=== PATIENT | female | born 1955 | race Caucasian/White ===

== ENCOUNTER 2016-10-17 06:34 | Inpatient (IN) ==
[2016-10-11 12:54] LABS: Basophils # 0.1 10*3/uL (0.0-0.2); Basophils % 0.6 % (0.0-0.8); Eosinophils # 0.3 10*3/uL (0.0-0.87); Eosinophils % 3.1 % (0.00-10.9); Hematocrit 32.8 VOL% (35.7-47.0); Hemoglobin 10.7 GM/DL (12.0-16.0); Immature Granulocytes % 0.2 %; Immature Granulocytes Absolute 0.02 #; Lymphocytes # 2.5 10*3/uL (1.4-4.0); Lymphocytes % 30.4 % (21.3-54.2); Mean Corpuscular HGB Conc 32.6 GM/DL (32-36); Mean Corpuscular Hemoglobin 28 PG (27-34); Mean Corpuscular Volume 85.6 FL (87-102); Monocytes # 0.7 10*3/uL (0.11-0.8); Monocytes % 8.3 % (1.7-12.7); Neutrophils # 4.8 10*3/uL (1.4-7.4); Neutrophils % 57.4 % (38.7-73.9); Platelet Count 250 T/CUMM (130-400); Red Blood Count 3.83 MC/CUMM (3.8-5.5); Red Cell Distribution Width 12.4 % (9.3-17.3); White Blood Count 8.4 T/CUMM (4-12)
--- NOTE | 2016-10-11 12:57 | EKG Report ---
Stationary ECG Study [facility] Test Date: 10/11/2016 12:56:17 PM Pat Name: CORTEZ WELCH Department: Room: Gender: F Biomedical Manager: HARDEEP FINNEY 10-17 : 1955 Requested by: Jake Finney Order Number: [id number] Reading MD: QASIM SHOOK Intervals [place] Rate: 68 P: 64 MS: 154 QRS: 42 QRSD: 97 T: 46 QT: 401 QTc: 419 Interpretive Statements SINUS RHYTHM Electronically Signed On 10-11-16 15:11:50 CDT by QASIM SHOOK [email or web address]
[2016-10-11 13:32] LABS: Albumin 4.4 G/DL (3.4-5.0); Bilirubin,Total 0.5 MG/DL (0.2-1.0); Calcium 8.8 MG/DL (8.5-10.1); Osmolality,Calculated 283.1 MOS/KG (273-304); Potassium 4.6 MMOL/L (3.5-5.1); Total Protein 7.2 G/DL (6.4-8.3)
[2016-10-17] MEDS ORDERED: PANTOPRAZOLE 40 MG TABLET PO ONE ×2 (07:05→07:21)
[2016-10-17] MEDS ORDERED: SODIUM CHLORIDE 0.9% 100 ML IV ONE (07:21)
[2016-10-17] MEDS ORDERED: ceFAZolin 1,000 MG VIAL ONE (07:21)
[2016-10-17] MEDS ORDERED: LACTATED RINGERS 1,000 ML IV SCH (07:30)
[2016-10-17] MEDS ORDERED: HEPARIN 5,000 UNIT/1 ML VIAL ONE (08:05)
[2016-10-17] MEDS ORDERED: VANCOMYCIN 500 MG VIAL ONE (08:05)
--- NOTE | 2016-10-17 08:14 | History and Physical Update ---
History and Physical Update - History and Physical H&P was reviewed, the patient examined and there: are no changes in the patients condition since last H&P was completed.
[2016-10-17] MEDS ORDERED: KETOROLAC 30 MG/1 ML VIAL ONE (09:10)
[2016-10-17] MEDS ORDERED: GLYCOPYRROLATE 0.4 MG/2 ML VIAL ONE (09:10)
[2016-10-17] MEDS ORDERED: HEPARIN 10,000 UNIT/10 ML VIAL ONE (09:10)
[2016-10-17] MEDS ORDERED: NITROGLYCERIN 50 MG/250 ML BOTTLE IV ONE (09:10)
[2016-10-17] MEDS ORDERED: ETOMIDATE 20 MG/10 ML VIAL IV ONE (09:10)
[2016-10-17] MEDS ORDERED: PHENYLEPHRINE 20 MG/250 ML PREMIX IV ONE (09:10)
[2016-10-17] MEDS ORDERED: ROCURONIUM 100 MG/10 ML VIAL IV ONE (09:10)
[2016-10-17] MEDS ORDERED: PROTAMINE SULFATE 50 MG/5 ML VIAL IV ONE (09:10)
[2016-10-17] MEDS ORDERED: PROMETHAZINE 25 MG/1 ML VIAL IM PRN (10:50)
[2016-10-17] MEDS ORDERED: GLUCAGON 1 MG VIAL IM PRN (10:50)
[2016-10-17] MEDS ORDERED: DEXTROSE 50% 25 GM/50 ML VIAL IV PRN (10:50)
[2016-10-17] MEDS ORDERED: DOPamine 800 MG/250 ML PREMIX IV PRN (10:50)
[2016-10-17] MEDS ORDERED: NALOXONE 0.4 MG/ML VIAL IV PRN (10:50)
[2016-10-17] MEDS ORDERED: ONDANSETRON 4 MG/2 ML VIAL IV PRN ×2 (10:50→11:17)
--- NOTE | 2016-10-17 10:50 | Operative Note ---
Date of procedure: 10/17/16 Procedure: Dr. Finney operative report Martha sifuentes. Surgeon: Cornelio Anesthesia: [place] general endotracheal Preoperative diagnosis: High-grade right internal carotid artery stenosis. Postoperative diagnosis: Same Procedure: Right carotid endarterectomy with bovine pericardial patch. Indications for the procedure Ms. Sifuentes 61-year-old woman is found to have bilateral high-grade carotid stenoses the right side seems a bit worse and is associated with her being right brain dominant. I have offered a right carotid endarterectomy with interval left carotid endarterectomy I explained the alternatives risks and complications which she understands and accepts Description of the procedure: After the induction of general endotracheal anesthesia the patient was placed in supine position her neck modestly extended and turned to the left. Right neck was prepped with ChloraPrep and draped in the usual fashion. Incision was made in a skin crease below the angle of the mandible and carried into the subplatysmal space. I then dissected along the anterior border of the sternocleidomastoid muscle the anterior facial vein was ligated hemoclipped and divided another branch was also ligated and divided. I dissected to the common carotid artery and controlled it with a maxi vessel loop and the patient then received 5000 units of intravenous heparin. I continued dissecting up along the common carotid past the diseased bifurcation to the more normal distal internal and external carotid arteries. These were controlled with small vessel loops. With adequate anticoagulation I brought up Vesseloops and mitral longitudinal arteriotomy from the common carotid through the diseased bifurcation to the more normal distal internal carotid artery. There was fair backbleeding from the internal carotid and in-line Cope- [place] shunt was placed first in the internal backflush and placed in the common carotid to reestablish flow. As indicated on the arteriogram there was more or less a double area of stenosis one directly at the origin of the internal and one more distally. This was a highly calcified plaque. Using further instrument I did a standard endarterectomy removing the diseased intima and media from the bifurcation it feathered out very well on both the internal and external carotid arteries. Loose flaps of medial removed under loupe magnification endarterectomized segment was flushed copiously with heparinized saline. Bovine pericardial patch and 5-0 Prolene was used to close the arteriotomy shunt removed and appropriate time backflushing internal and external carotid arteries and flushing again with heparinized saline prior to completing the closure. Flow was initiated from the common carotid into the external and then restored into the internal carotid artery. Hemostasis was fair heparin was partially reversed with 25 mg of protamine a pledget of Surgicel and pressure was held for a brief time until hemostasis was good the neck was irrigated with saline and vancomycin it was closed over quarter inch [place] drain with a running 3-0 Monocryl in the platysma and skin clips on the skin. Blood loss is estimated at 150 cc sponge needle and instrument counts are correct and the patient was taken to the recovery room in stable condition. Dr. Finney operative report on brayan Velez maria. Surgeon / Physician: Jake Finney Results - Labs CBC & BMP: 10/11/16 12:48 10/11/16 12:48 Discharge Plan - Discharge Medications No Action Cholecalciferol (Vitamin D3) [Vitamin D3] 1,000 unit PO DAILY Calcium (Carbonate) [Caltrate 600] 1,200 mg PO DAILY Umeclidinium [place] [Incruse Ellipta] 1 puff INH DAILY Timolol 0.5% Oph Soln [Timoptic 0.5%] 1 drop BOTH EYES BEDTIME clonazePAM [Klonopin] 1 mg PO DAILY HYDROcodone/ACETAMIN 10-325 [[place] 10-325] 1 tablet PO Q6H Gabapentin Cap/Tab [Neurontin Cap/Tab] 400 mg PO TID Certolizumab Pegol [Cimzia] 400 mg SQ DIRECTED Potassium Chloride 10 meq PO DAILY Lisinopril [Prinivil] 10 mg PO DAILY Atorvastatin [Lipitor] 80 mg PO BEDTIME Levothyroxine Tab [Synthroid Tab] 112 mcg PO DAILY@0700 amLODIPine [Norvasc] 10 mg PO DAILY Omeprazole 40 mg PO DAILY Aspirin 81 mg PO DAILY Turmeric Root Extract [Turmeric] 1,000 mg PO DAILY Clopidogrel [Plavix] 75 mg PO DAILY Azithromycin 250 mg PO DIRECTED Diclofenac Sodium [Diclofenac Sodium ER] 100 mg PO QOTHER DAY Sertraline [Zoloft] 100 mg PO DAILY - Follow Up or Referral - Forms/Instructions
[2016-10-17] MEDS ORDERED: CERTOLIZUMAB PEGOL 400 MG SQ SCH (11:00)
[2016-10-17] MEDS ORDERED: AZITHROMYCIN 250 MG TABLET PO SCH (11:00)
[2016-10-17] MEDS ORDERED: SEVOFLURANE 1 UNIT/15 MINUTE INH ONE (11:12)
[2016-10-17] MEDS ORDERED: MIDAZOLAM 2 MG/2 ML VIAL ONE (11:13)
[2016-10-17] MEDS ORDERED: fentaNYL 100 MCG/2 ML VIAL ONE (11:13)
[2016-10-17] MEDS ORDERED: ONDANSETRON 4 MG/2 ML VIAL ONE (11:16)
[2016-10-17] MEDS ORDERED: HYDROmorphone 2 MG/1 ML VIAL ONE (11:16)
[2016-10-17] MEDS ORDERED: HYDROmorphone 2 MG/1 ML VIAL IV PRN (11:17)
--- NOTE | 2016-10-17 12:16 | Anesthesia ---
Anesthesia Post OP - Post Ansesthetic Evaluation Patient seen in post op: Yes Resp: within normal limits CV: other (being watched overnight in ICU) Mental: within normal limits Temp: within normal limits Sara-[id number]: within normal limits Nausea and Vomiting: within normal limits Pain: within normal limits
[2016-10-17] MEDS: LACTATED RINGERS 1,000 ML IV SCH ×2 (13:54→17:00)
[2016-10-17] MEDS: ASPIRIN EC 81 MG TABLET PO SCH (13:54)
[2016-10-17] MEDS: KETOROLAC 10 MG TABLET PO SCH ×2 (13:56→17:56)
--- NOTE | 2016-10-17 16:34 | Event Note ---
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 Be up out of bed this evening anticipate moving to the room in the morning
[2016-10-17] MEDS ORDERED: ATORVASTATIN 80 MG TABLET PO SCH (21:00)
[2016-10-18] MEDS: KETOROLAC 10 MG TABLET PO SCH ×3 (01:00→13:51)
[2016-10-18] MEDS: LACTATED RINGERS 1,000 ML IV SCH ×2 (02:22→10:54)
[2016-10-18] MEDS ORDERED: NITROPRUSSIDE 50 MG/2 ML VIAL IV PRN (02:29)
[2016-10-18] MEDS ORDERED: HYDROmorphone 2 MG/1 ML VIAL IV PRN (02:33)
[2016-10-18] MEDS ORDERED: NITROPRUSSIDE 100 MG in DEXTROSE 5% 246 ML IV SCH (03:00)
--- NOTE | 2016-10-18 08:15 | Event Note ---
Walker is awake alert oriented her neck looks good drain is removed vital signs are markedly improved he is ready for transfer upstairs possibly home this evening
[2016-10-18] MEDS ORDERED: CALCIUM (CARBONATE) 600 MG TABLET PO SCH (09:00)
[2016-10-18] MEDS ORDERED: CHOLECALCIFEROL 1,000 UNIT TABLET PO SCH (09:00)
[2016-10-18] MEDS ORDERED: NON-FORMULARY MEDICATION (Umeclidinium Bromide [Incruse Ellipta] 1 PUFF) INH SCH (09:01)
[2016-10-18] MEDS ORDERED: TURMERIC ROOT EXTRACT 1000 MG PO SCH (09:01)
[2016-10-18] MEDS ORDERED: CLOPIDOGREL 75 MG TABLET PO SCH (09:30)
[2016-10-18] MEDS ORDERED: SERTRALINE 100 MG TABLET PO SCH (09:30)
[2016-10-18] MEDS ORDERED: ASPIRIN CHEW 81 MG TABLET PO SCH (09:30)
[2016-10-18] MEDS ORDERED: GABAPENTIN 400 MG CAPSULE PO SCH (09:30)
[2016-10-18] MEDS ORDERED: LISINOPRIL 10 MG TABLET PO SCH (09:30)
[2016-10-18] MEDS ORDERED: POTASSIUM CHLORIDE 10 MEQ TABLET PO SCH (09:30)
[2016-10-18] MEDS ORDERED: amLODIPine 10 MG TABLET PO SCH (09:30)
[2016-10-18] MEDS ORDERED: clonazePAM 0.5 MG TABLET PO SCH (09:30)
[2016-10-18] MEDS ORDERED: PANTOPRAZOLE 40 MG TABLET PO SCH (09:30)
[2016-10-18] MEDS: ASPIRIN EC 81 MG TABLET PO SCH ×2 (10:12→10:47)
[2016-10-18] MEDS: CLOPIDOGREL 75 MG TABLET PO SCH ×2 (10:13→10:47)
[2016-10-18] MEDS ORDERED: LEVOTHYROXINE 112 MCG TABLET PO SCH (10:19)
--- NOTE | 2016-10-18 10:52 | Pathology Report from [facility] ---
ACCESSION # : [id number] PATIENT NAME : Cortez Welch ORDERING DR : SILVA MAGUIRE MD CLINICAL HX: Asymptomatic high grade [place]. carotid stenosis POST-OP DX: Same SPECIMEN INFO: Plaque GROSS DESCRIPTION: The specimen is received in formalin labeled with the patient 's name Cortez Welch is a yellow red endarectomy measuring 5.2 x 1.3 cm. Purse Framer sections are submitted in one cassette following decalcification. DIAGNOSIS FOR CORTEZ WELCH: PLAQUE, RIGHT CAROTID ENDARTERECTOMY: Calcified atheromatous plaque. SERVICE DATE: 10/17/2016 REPORT DATE: 10/18/2016 PATHOLOGIST: Nano Ceballos M.D. [facility]
[2016-10-18 15:39] VITALS: BP 152/73
--- NOTE | 2016-10-18 15:59 | Discharge Summary ---
Hospital Course - Hospital Course Hospital Course: Mr. Luciano was admitted for right carotid endarterectomy for high-grade stenosis involving the right internal carotid artery that likely was symptomatic. She is done well with that surgery she is up and about neurologically intact her neck looks good with no hematoma voice is normal tolerating a diet. She is ready for discharge and I am instructed her with her in wound care exercise expected recovery medications we of course keeping her on aspirin and Plavix. She has Lortab for her chronic arthritis. I will see her in office next week for staple removal we will plan on an interval left carotid endarterectomy in 4 weeks Specialty Discharge - Follow Up or Referrals Follow up with: Jake Finney MD [Physician] - Discharge Plan - Discharge Medications No Action Cholecalciferol (Vitamin D3) [Vitamin D3] 1,000 unit PO DAILY Calcium (Carbonate) [Caltrate 600] 1,200 mg PO DAILY Umeclidinium [place] [Incruse Ellipta] 1 puff INH DAILY Timolol 0.5% Oph Soln [Timoptic 0.5%] 1 drop BOTH EYES BEDTIME clonazePAM [Klonopin] 1 mg PO DAILY HYDROcodone/ACETAMIN 10-325 [[place] 10-325] 1 tablet PO Q6H Gabapentin Cap/Tab [Neurontin Cap/Tab] 400 mg PO TID Certolizumab Pegol [Cimzia] 400 mg SQ DIRECTED Potassium Chloride 10 meq PO DAILY Lisinopril [Prinivil] 10 mg PO DAILY Atorvastatin [Lipitor] 80 mg PO BEDTIME Levothyroxine Tab [Synthroid Tab] 112 mcg PO DAILY@0700 amLODIPine [Norvasc] 10 mg PO DAILY Omeprazole 40 mg PO DAILY Aspirin 81 mg PO DAILY Turmeric Root Extract [Turmeric] 1,000 mg PO DAILY Clopidogrel [Plavix] 75 mg PO DAILY Azithromycin 250 mg PO DIRECTED Diclofenac Sodium [Diclofenac Sodium ER] 100 mg PO QOTHER DAY Sertraline [Zoloft] 100 mg PO DAILY - Follow Up or Referral Follow Up: Jake Finney MD [Physician] - - Forms/Instructions Exam - Constitutional Vitals: Period Temp Pulse Resp BP Sys/[place]acheco Pulse Ox Last 24 Hr 98.0 F-99.9 F 57-76 12-24 110-165/32-73 90-100 DS: Provider Date of admission: 10/17/16 06:34 Primary care physician: Wanda Stahl MD Attending physician on admission: Jake Finney MD Discharging clinician: Jake Finney MD
--- NOTE | 2016-10-18 16:02 | Discharge Summary ---
Specialty Discharge - Follow Up or Referrals Follow up with: Jake Finney MD [Physician] - Discharge Plan - Discharge Data Disposition: Disch To Home/Self Care Condition at Discharge: Stable Discharge Diet: advance to your usual diet Activity: resume usual activities as tolerated Hygiene: may shower Weight Bearing at Discharge: full weight bearing Driving: not until seen by doctor Contact your physician if you experience:: Redness or swelling, Bleeding - Discharge Medications No Action Cholecalciferol (Vitamin D3) [Vitamin D3] 1,000 unit PO DAILY Calcium (Carbonate) [Caltrate 600] 1,200 mg PO DAILY Umeclidinium [place] [Incruse Ellipta] 1 puff INH DAILY Timolol 0.5% Oph Soln [Timoptic 0.5%] 1 drop BOTH EYES BEDTIME clonazePAM [Klonopin] 1 mg PO DAILY HYDROcodone/ACETAMIN 10-325 [[place] 10-325] 1 tablet PO Q6H Gabapentin Cap/Tab [Neurontin Cap/Tab] 400 mg PO TID Certolizumab Pegol [Cimzia] 400 mg SQ DIRECTED Potassium Chloride 10 meq PO DAILY Lisinopril [Prinivil] 10 mg PO DAILY Atorvastatin [Lipitor] 80 mg PO BEDTIME Levothyroxine Tab [Synthroid Tab] 112 mcg PO DAILY@0700 amLODIPine [Norvasc] 10 mg PO DAILY Omeprazole 40 mg PO DAILY Aspirin 81 mg PO DAILY Turmeric Root Extract [Turmeric] 1,000 mg PO DAILY Clopidogrel [Plavix] 75 mg PO DAILY Azithromycin 250 mg PO DIRECTED Diclofenac Sodium [Diclofenac Sodium ER] 100 mg PO QOTHER DAY Sertraline [Zoloft] 100 mg PO DAILY - Follow Up or Referral Follow Up: Jake Finney MD [Physician] - 1 Week - Forms/Instructions Exam - Constitutional Vitals: Period Temp Pulse Resp BP Sys/Pacheco Pulse Ox Last 24 Hr 98.0 F-99.9 F 57-76 12-24 112-165/32-73 90-100 DS: Provider Date of admission: 10/17/16 06:34 Primary care physician: Wanda Stahl MD Attending physician on admission: Jake Finney MD Discharging clinician: Jake Finney MD
[2016-10-18] MEDS ORDERED: TIMOLOL 0.5% OPH SOLN 5 ML BOTTLE BOTH EYES SCH (21:00)
[2016-10-19] MEDS ORDERED: LEVOTHYROXINE 112 MCG TABLET PO SCH (07:00)
[2016-10-19] MEDS ORDERED: DICLOFENAC SODIUM 50 MG TABLET PO SCH (09:00)
== END 2016-10-18 17:00 | disposition home or self-care (01) | DRG 39 ==
LOC: N.SDSINP 06:34 → N.ICU 11:55 → N.3E 10-18 11:28
PROVIDERS: ADMIT Surgery; ATTEND Surgery

== ENCOUNTER 2016-12-26 06:45 | Inpatient (IN) ==
[2016-12-19 15:10] LABS: Basophils # 0.1 10*3/uL (0.0-0.2); Basophils % 0.6 % (0.0-0.8); Eosinophils # 0.2 10*3/uL (0.0-0.87); Eosinophils % 2.2 % (0.00-10.9); Hematocrit 30.4 VOL% (35.7-47.0); Hemoglobin 9.8 GM/DL (12.0-16.0); Immature Granulocytes % 0.6 %; Immature Granulocytes Absolute 0.05 #; Lymphocytes # 2.3 10*3/uL (1.4-4.0); Lymphocytes % 25.7 % (21.3-54.2); Mean Corpuscular HGB Conc 32.2 GM/DL (32-36); Mean Corpuscular Hemoglobin 27 PG (27-34); Mean Corpuscular Volume 82.6 FL (87-102); Mean Platelet Volume 10.7 FL (9.6-12.0); Monocytes # 0.5 10*3/uL (0.11-0.8); Monocytes % 5.8 % (1.7-12.7); Neutrophils # 5.8 10*3/uL (1.4-7.4); Neutrophils % 65.1 % (38.7-73.9); Platelet Count 200 T/CUMM (130-400); Red Blood Count 3.68 MC/CUMM (3.8-5.5); Red Cell Distribution Width 17.1 % (9.3-17.3); White Blood Count 8.9 T/CUMM (4-12)
[2016-12-19 15:38] LABS: Osmolality,Calculated 275.5 MOS/KG (273-304); Potassium 3.8 MMOL/L (3.5-5.1)
[2016-12-26] MEDS ORDERED: LORazepam 1 MG TABLET PO ONE (07:14)
[2016-12-26] MEDS ORDERED: PANTOPRAZOLE 40 MG TABLET PO ONE ×2 (07:14→07:31)
[2016-12-26] MEDS ORDERED: FAMOTIDINE 20 MG TABLET ONE (07:24)
[2016-12-26] MEDS ORDERED: SODIUM CHLORIDE 0.9% 100 ML IV ONE (07:24)
[2016-12-26] MEDS ORDERED: LORazepam 1 MG TABLET ONE (07:24)
[2016-12-26] MEDS ORDERED: ceFAZolin 1,000 MG VIAL ONE (07:24)
[2016-12-26] MEDS ORDERED: VANCOMYCIN 500 MG VIAL ONE (07:25)
[2016-12-26] MEDS ORDERED: HEPARIN 5,000 UNIT/1 ML VIAL ONE (07:25)
[2016-12-26] MEDS ORDERED: LACTATED RINGERS 1,000 ML IV SCH (07:30)
--- NOTE | 2016-12-26 07:56 | History and Physical Update ---
History and Physical Update - History and Physical H&P was reviewed, the patient examined and there: are no changes in the patients condition since last H&P was completed.
[2016-12-26] MEDS ORDERED: PROPOFOL 200 MG/20 ML VIAL IV ONE (08:25)
[2016-12-26] MEDS ORDERED: HEPARIN 10,000 UNIT/10 ML VIAL ONE (08:25)
[2016-12-26] MEDS ORDERED: PHENYLEPHRINE 20 MG/250 ML PREMIX IV ONE (08:25)
[2016-12-26] MEDS ORDERED: ONDANSETRON 4 MG/2 ML VIAL ONE ×2 (08:25→10:32)
[2016-12-26] MEDS ORDERED: GLYCOPYRROLATE 0.4 MG/2 ML VIAL ONE (08:25)
[2016-12-26] MEDS ORDERED: ROCURONIUM 100 MG/10 ML VIAL IV ONE (08:25)
[2016-12-26] MEDS ORDERED: NITROGLYCERIN 50 MG/250 ML BOTTLE IV ONE (08:25)
[2016-12-26] MEDS ORDERED: LIDOCAINE 1% 5 ML VIAL ONE (08:25)
[2016-12-26] MEDS ORDERED: NEOSTIGMINE 10 MG/10 ML VIAL ONE (08:25)
--- NOTE | 2016-12-26 10:10 | Operative Note ---
Date of procedure: 12/26/16 Procedure: Dr. Finney operative report Martha sifuentes. Surgeon: Sharmin Anesthesia: Vertical general endotracheal Preoperative diagnosis: High-grade complex plaque of the left internal carotid artery Postoperative diagnosis: Same Procedure: Left carotid endarterectomy with bovine pericardial patch. Indications for the procedure: Ms. Sifuentes 61-year-old woman has been found to have bilateral carotid stenosis very high-grade ulcerated plaques she is undergone a right carotid endarterectomy and has done well is now ready for interval left carotid endarterectomy she understands the alternatives risks and complications Description of the procedure: After the induction of general endotracheal anesthesia the patient was placed in supine position her neck modestly extended and turned to the right. Left neck upper chest were prepped with ChloraPrep and draped in standard fashion. Skin incision is made in a somewhat horizontal fashion below the angle of the mandible this is carried into the subplatysmal space. Dissection is carried out along the anterior border of the sternocleidomastoid muscle identifying the internal jugular vein. Anterior branches and the anterior facial vein were ligated hemoclipped and divided the common carotid artery was exposed and controlled with a maxi vessel loop. Patient received 5000 units of heparin and dissection is continued along the carotid common carotid past the diseased bifurcation hypoglossal nerve and vagus nerves were identified and protected. Vesseloops were used to control the external and internal carotid artery separately. With adequate anticoagulation Vesseloops were brought up a longitudinal arteriotomy was made from the common carotid through the diseased bifurcation to the more normal distal internal carotid artery good back bleeding is obtained. Placed an in- line Cope-Inahara shunt backbleeding from the internal and then placed into the common carotid to reestablish flow. There was indeed significant calluses plaque involving the bifurcation and the more distal internal carotid standard endarterectomy was carried out removing the diseased intima and media from the bifurcation it feathered out very well on the internal carotid and the common carotid and external loose flaps of medial removed under loupe magnification endarterectomized segment was flushed with heparinized saline bovine pericardial patch and 5-0 Prolene were used to close the arteriotomy removing the shunt and appropriate time backflushing internal and external carotid arteries and flushing again with heparinized saline. With the arteriotomy closed flow was initiated from the common carotid into the external and then restored into the internal carotid artery Doppler flow in both internal and external are quite good heparin was partially reversed with 25 mg of protamine. Small bleeding site on the very upper aspect of the closure this is sutured with a 6-0 Prolene suture hemostasis appears to be good pledget of Surgicel was placed over the arteriotomy flow was again checked with the Doppler and is good incision is closed with 3-0 Monocryl on the platysma skin clips on the skin quarter inch [place] drain was brought out the anterior aspect of the incision blood loss is estimated at 150 cc sponge needle and his counts are correct and the patient taken to recovery in stable condition Surgeon / Physician: Jake Finney Results - Labs CBC & BMP: 12/19/16 14:52 12/19/16 14:52 Discharge Plan - Discharge Medications No Action Cholecalciferol (Vitamin D3) [Vitamin D3] 1,000 unit PO DAILY Calcium (Carbonate) [Caltrate 600] 1,200 mg PO DAILY Umeclidinium [place] [Incruse Ellipta] 1 puff INH DAILY Timolol 0.5% Oph Soln [Timoptic 0.5%] 1 drop BOTH EYES BEDTIME clonazePAM [Klonopin] 1 mg PO DIRECTED HYDROcodone/ACETAMIN 10-325 [[place] 10-325] 1 tablet PO Q6H Gabapentin Cap/Tab [Neurontin Cap/Tab] 400 mg PO TID Certolizumab Pegol [Cimzia] 400 mg SQ DIRECTED Potassium Chloride 10 meq PO DAILY Lisinopril [Prinivil] 10 mg PO DAILY Atorvastatin [Lipitor] 80 mg PO BEDTIME Levothyroxine Tab [Synthroid Tab] 112 mcg PO DAILY@0700 amLODIPine [Norvasc] 10 mg PO DAILY Omeprazole 40 mg PO DAILY Aspirin 81 mg PO DAILY Turmeric Root Extract [Turmeric] 1,000 mg PO DAILY Clopidogrel [Plavix] 75 mg PO DAILY Azithromycin 250 mg PO DIRECTED Diclofenac Sodium [Diclofenac Sodium ER] 100 mg PO DIRECTED Sertraline [Zoloft] 100 mg PO DAILY Ferrous Sulfate [Ferrous Sulfate Cap] 325 mg PO TID - Follow Up or Referral - Forms/Instructions
[2016-12-26] MEDS ORDERED: oxyCODONE/ACETAMINOPHEN 5-325 MG TABLET PO PRN ×2 (10:11)
[2016-12-26] MEDS ORDERED: GLUCAGON 1 MG VIAL IM PRN (10:11)
[2016-12-26] MEDS ORDERED: ONDANSETRON 4 MG/2 ML VIAL IV PRN ×2 (10:11→10:39)
[2016-12-26] MEDS ORDERED: DOPamine 800 MG/250 ML PREMIX IV PRN (10:11)
[2016-12-26] MEDS ORDERED: DEXTROSE 50% 25 GM/50 ML VIAL IV PRN (10:11)
[2016-12-26] MEDS ORDERED: NALOXONE 0.4 MG/ML VIAL IV PRN (10:11)
[2016-12-26] MEDS ORDERED: HYDROmorphone 2 MG/1 ML VIAL IV PRN ×2 (10:11→10:39)
[2016-12-26] MEDS ORDERED: PROMETHAZINE 25 MG/1 ML VIAL IM PRN (10:11)
[2016-12-26] MEDS ORDERED: NON-FORMULARY MEDICATION (Clonazepam [Klonopin] 1 MG) PO SCH (10:15)
[2016-12-26] MEDS ORDERED: DICLOFENAC SODIUM 100 MG PO SCH (10:15)
[2016-12-26] MEDS ORDERED: MIDAZOLAM 2 MG/2 ML VIAL ONE (10:28)
[2016-12-26] MEDS ORDERED: SEVOFLURANE 1 UNIT/15 MINUTE INH ONE (10:28)
[2016-12-26] MEDS ORDERED: ePHEDrine 50 MG/ML AMP ONE (10:29)
[2016-12-26] MEDS ORDERED: fentaNYL 100 MCG/2 ML VIAL ONE (10:29)
[2016-12-26] MEDS ORDERED: CLOPIDOGREL 75 MG TABLET PO SCH (10:30)
[2016-12-26] MEDS ORDERED: CERTOLIZUMAB PEGOL 400 MG SQ SCH (10:30)
[2016-12-26] MEDS ORDERED: HYDROmorphone 2 MG/1 ML VIAL ONE (10:32)
[2016-12-26] MEDS: LACTATED RINGERS 1,000 ML IV SCH ×2 (11:30→21:36)
[2016-12-26] MEDS: NITROGLYCERIN DRIP 50 MG/250 ML BOTTLE IV SCH (11:30)
[2016-12-26] MEDS ORDERED: AZITHROMYCIN 250 MG TABLET PO SCH (12:00)
[2016-12-26] MEDS: ASPIRIN EC 81 MG TABLET PO SCH (12:35)
[2016-12-26] MEDS: CLOPIDOGREL 75 MG TABLET PO SCH (12:35)
--- NOTE | 2016-12-26 13:32 | Anesthesia Post-Op ---
Anesthesia Post OP - Post Ansesthetic Evaluation Patient seen in post op: Yes Resp: within normal limits CV: within normal limits Mental: within normal limits Temp: within normal limits [id number]: within normal limits Nausea and Vomiting: within normal limits Pain: within normal limits
[2016-12-26] MEDS: PHENYLEPHRINE DRIP 40 MG/250 ML PREMIX IV SCH (14:10)
[2016-12-26] MEDS: HYDROmorphone 2 MG/1 ML VIAL IV PRN (14:10)
[2016-12-26] MEDS: IPRATROPIUM 500 MCG/2.5 ML NEB RESP TX SCH ×2 (14:53→19:50)
[2016-12-26] MEDS: FERROUS SULFATE 325 MG TABLET PO SCH ×2 (15:00→21:34)
[2016-12-26] MEDS: GABAPENTIN 400 MG CAPSULE PO SCH ×2 (15:00→21:34)
--- NOTE | 2016-12-26 16:36 | Event Note ---
Walker is awake alert oriented neck looks good no hematoma forming good handgrip tongue midline signs are normal.
[2016-12-26] MEDS ORDERED: TIMOLOL 0.5% OPH SOLN 5 ML BOTTLE BOTH EYES SCH (21:00)
[2016-12-26] MEDS ORDERED: ATORVASTATIN 80 MG TABLET PO SCH (21:00)
[2016-12-27] MEDS: HYDROmorphone 2 MG/1 ML VIAL IV PRN (04:44)
--- NOTE | 2016-12-27 05:05 | Event Note ---
Ms. Luciano is fully awake alert oriented good handgrip tongue midline swallowing well. Has mild swelling in the neck but no specific hematoma have removed the [place] drain. I will transfer her upstairs this morning with regular breakfast and see her later possible discharge this afternoon
[2016-12-27] MEDS: LACTATED RINGERS 1,000 ML IV SCH (06:42)
[2016-12-27] MEDS ORDERED: LEVOTHYROXINE 112 MCG TABLET PO SCH (07:00)
[2016-12-27] MEDS: IPRATROPIUM 500 MCG/2.5 ML NEB RESP TX SCH ×2 (07:27→10:50)
[2016-12-27] MEDS: FERROUS SULFATE 325 MG TABLET PO SCH (08:45)
[2016-12-27] MEDS: ASPIRIN EC 81 MG TABLET PO SCH (08:45)
[2016-12-27] MEDS: GABAPENTIN 400 MG CAPSULE PO SCH (08:45)
[2016-12-27] MEDS: CLOPIDOGREL 75 MG TABLET PO SCH (08:45)
[2016-12-27] MEDS ORDERED: LISINOPRIL 10 MG TABLET PO SCH (09:00)
[2016-12-27] MEDS ORDERED: TURMERIC ROOT EXTRACT 1000 MG PO SCH (09:00)
[2016-12-27] MEDS ORDERED: PANTOPRAZOLE 40 MG TABLET PO SCH (09:00)
[2016-12-27] MEDS ORDERED: CALCIUM (CARBONATE) 600 MG TABLET PO SCH (09:00)
[2016-12-27] MEDS ORDERED: POTASSIUM CHLORIDE 10 MEQ TABLET PO SCH (09:00)
[2016-12-27] MEDS ORDERED: amLODIPine 10 MG TABLET PO SCH (09:00)
[2016-12-27] MEDS ORDERED: CHOLECALCIFEROL 1,000 UNIT TABLET PO SCH (09:00)
[2016-12-27] MEDS ORDERED: SERTRALINE 100 MG TABLET PO SCH (09:00)
[2016-12-27] MEDS: NITROGLYCERIN DRIP 50 MG/250 ML BOTTLE IV SCH (11:00)
[2016-12-27] MEDS: PHENYLEPHRINE DRIP 40 MG/250 ML PREMIX IV SCH (11:00)
--- NOTE | 2016-12-27 12:22 | Pathology Report from [facility] ---
[facility] ACCESSION # : [id number] PATIENT NAME : Cortez Welch ORDERING DR : SILVA MAGUIRE MD CLINICAL HX: Bilateral carotid stenosis, RT carotid endarterectomy POST-OP DX: Same SPECIMEN INFO: Plaque GROSS DESCRIPTION: The specimen is received in formalin labeled CORTEZ WELCH consists of a yellow-pink endarterectomy measuring 5.5 x 1.5 cm in aggregate. A access services representative section is submitted in one cassette following decalcification. DIAGNOSIS FOR CORTEZ WELCH: RIGHT CAROTID ENDARTERECTOMY: Atheromatous material from atherosclerotic plaque. COLLECTED DATE: 12/26/2016 [facility] REPORT DATE: 12/27/2016 ELECTRONICALLY SIGNED BY: Melvin Crespo III, M.D. 12/27/2016 - 8:32:35 [facility]
[2016-12-27 13:10] VITALS: BP 161/67
--- NOTE | 2016-12-27 17:29 | Discharge Summary ---
Hospital Course - Hospital Course Hospital Course: Petrona Luciano is a 7-year-old woman who was admitted for interval left carotid endarterectomy having been found to have very high-grade stenosis with complex lesions of both internal carotid arteries she was approximately 2 months postop with a right carotid endarterectomy and had recovered well and was ready for the left side. This was carried out yesterday on 12/26/2016 and she has recovered quite nicely she is fully awake alert and oriented her neck looks good with swelling but no significant hematoma she is tolerating her diet and ambulating. We plan for her to be transferred to the floor this morning but no beds became available I spoke with nursing staff earlier this afternoon the patient was doing well and was ready to be discharged required no new prescriptions and therefore was discharged home from the intensive care unit. I have discussed with her the recovery as was done with her previous surgery had expected to do well I will see her in the office in 1 week Specialty Discharge - Follow Up or Referrals Discharge Plan - Discharge Data Condition at Discharge: Stable Discharge Diet: advance to your usual diet Activity: resume usual activities as tolerated Hygiene: may shower Weight Bearing at Discharge: full weight bearing Driving: not until seen by doctor Contact your physician if you experience:: fever over 101, Redness or swelling, Bleeding - Discharge Medications No Action Cholecalciferol (Vitamin D3) [Vitamin D3] 1,000 unit PO DAILY Calcium (Carbonate) [Caltrate 600] 1,200 mg PO DAILY Umeclidinium [place] [Incruse Ellipta] 1 puff INH DAILY Timolol 0.5% Oph Soln [Timoptic 0.5%] 1 drop BOTH EYES BEDTIME clonazePAM [Klonopin] 1 mg PO DIRECTED HYDROcodone/ACETAMIN 10-325 [[place] 10-325] 1 tablet PO Q6H Gabapentin Cap/Tab [Neurontin Cap/Tab] 400 mg PO TID Certolizumab Pegol [Cimzia] 400 mg SQ DIRECTED Potassium Chloride 10 meq PO DAILY Lisinopril [Prinivil] 10 mg PO DAILY Atorvastatin [Lipitor] 80 mg PO BEDTIME Levothyroxine Tab [Synthroid Tab] 112 mcg PO DAILY@0700 amLODIPine [Norvasc] 10 mg PO DAILY Omeprazole 40 mg PO DAILY Aspirin 81 mg PO DAILY Turmeric Root Extract [Turmeric] 1,000 mg PO DAILY Clopidogrel [Plavix] 75 mg PO DAILY Azithromycin 250 mg PO DIRECTED Diclofenac Sodium [Diclofenac Sodium ER] 100 mg PO DIRECTED Sertraline [Zoloft] 100 mg PO DAILY Ferrous Sulfate [Ferrous Sulfate Cap] 325 mg PO TID - Follow Up or Referral Follow Up: Jake Finney MD [Physician] - 1 Week - Forms/Instructions Instructions: Carotid Endarterectomy (DC) Exam - Constitutional Vitals: Period Temp Pulse Resp BP Sys/Pacheco Pulse Ox Last 24 Hr 97.4 F-98.6 F 68-97 14-23 94-170/38-68 91-100 Discharge Results Procedures and tests throughout hospitalization: Pending Orders 12/26/16 11:30 MRSA Surveillence, Inf Control Routine DS: Provider Date of admission: 12/26/16 06:45 Primary care physician: Wanda Stahl MD Attending physician on admission: Jake Finney MD Discharging clinician: Jake Finney MD
== END 2016-12-27 14:15 | disposition home or self-care (01) | DRG 39 ==
LOC: N.SDSINP 06:45 → N.ICU 11:24
PROVIDERS: ADMIT Surgery; ATTEND Surgery

== ENCOUNTER 2017-10-30 11:26 | Inpatient (IN) ==
[2017-10-30] MEDS ORDERED: METOPROLOL TARTRATE 5 MG/5 ML VIAL IV STA ×3 (11:43→13:21)
[2017-10-30] MEDS ORDERED: METOPROLOL TARTRATE 5 MG/5 ML VIAL IV ONE ×3 (11:49→13:23)
[2017-10-30 12:19] LABS: Basophils # 0.1 10*3/uL (0.0-0.2); Basophils % 0.7 % (0.0-0.8); Eosinophils # 0.1 10*3/uL (0.0-0.87); Eosinophils % 1.3 % (0.00-10.9); Hematocrit 42.3 VOL% (35.7-47.0); Hemoglobin 14.4 GM/DL (12.0-16.0); Immature Granulocytes % 0.2 %; Immature Granulocytes Absolute 0.02 #; Lymphocytes # 1.6 10*3/uL (1.4-4.0); Lymphocytes % 17.5 % (21.3-54.2); Mean Corpuscular Hemoglobin 30 PG (27-34); Mean Corpuscular Volume 87.8 FL (87-102); Mean Platelet Volume 10.5 FL (9.6-12.0); Monocytes # 0.7 10*3/uL (0.11-0.8); Monocytes % 7.6 % (1.7-12.7); Neutrophils # 6.7 10*3/uL (1.4-7.4); Neutrophils % 72.7 % (38.7-73.9); Platelet Count 172 T/CUMM (130-400); Red Blood Count 4.82 MC/CUMM (3.8-5.5); Red Cell Distribution Width 12.4 % (9.3-17.3); White Blood Count 9.2 T/CUMM (4-12)
[2017-10-30 12:29] LABS: PT Patient Result 10.2 SECS; Partial Thromboplastin Time 24.9 SECS (0-40)
[2017-10-30 12:46] LABS: Alanine Aminotransferase 37 U/L (13-56); Albumin 4.3 G/DL (3.4-5.0); Alkaline Phosphatase 91 U/L (45-117); Aspartate Amino Transferase 21 U/L (0-37); Bilirubin,Total < 0.39 MG/DL (0.2-1.0); Blood Urea Nitrogen 14 MG/DL (7-18); Calcium 9.8 MG/DL (8.5-10.1); Glucose 95 MG/DL (74-106); Osmolality,Calculated 277.5 MOS/KG (273-304); Potassium 3.9 MMOL/L (3.5-5.1); Sodium 139 MMOL/L (136-145); Thyroid Stimulating Hormone 0.192 uIU/ml (0.358-3.74); Total Protein 8.2 G/DL (6.4-8.3)
[2017-10-30] MEDS ORDERED: ONDANSETRON 4 MG/2 ML VIAL IV PRN (14:47)
[2017-10-30] MEDS ORDERED: ZALEPLON 5 MG CAPSULE PO PRN (14:47)
[2017-10-30] MEDS ORDERED: ALBUTEROL 2.5 MG/3 ML NEB RESP TX PRN (14:47)
[2017-10-30] MEDS ORDERED: niCARdipine INJ 25 MG in SODIUM CHLORIDE 0.9% 240 ML IV PRN (14:52)
[2017-10-30] MEDS ORDERED: DICLOFENAC SODIUM 50 MG TABLET PO PRN (14:53)
[2017-10-30] MEDS ORDERED: hydrALAZINE 20 MG/1 ML VIAL IV STA ×2 (15:08→15:47)
[2017-10-30] MEDS ORDERED: hydrALAZINE 20 MG/1 ML VIAL ONE (15:09)
[2017-10-30 17:14] LABS: Barbiturates Screen,Urine Negative (Negative); Benzodiazepines Screen,Urine Negative (Negative); Cannabinoid Screen,Urine Negative (Negative); Opiate Screen,Urine Positive (Negative); Phencyclidine Screen,Urine Negative (Negative)
[2017-10-30] MEDS ORDERED: ENOXAPARIN 30 MG/0.3 ML SYRINGE SUBCUT SCH (17:30)
[2017-10-30] MEDS: GABAPENTIN 400 MG CAPSULE PO SCH ×2 (20:02→21:21)
[2017-10-30] MEDS ORDERED: LATANOPROST 0.005% OPH SOLN 2.5 ML BOTTLE BOTH EYES SCH (21:00)
[2017-10-30] MEDS ORDERED: ATORVASTATIN 80 MG TABLET PO SCH (21:00)
[2017-10-30] MEDS: DOCUSATE SODIUM 100 MG CAPSULE PO SCH (21:20)
[2017-10-30] MEDS: FERROUS SULFATE 325 MG TABLET PO SCH (21:20)
[2017-10-30] MEDS: LISINOPRIL 20 MG TABLET PO SCH (21:21)
[2017-10-31] MEDS: LISINOPRIL 20 MG TABLET PO SCH ×2 (00:29→08:51)
[2017-10-31 05:24] LABS: Basophils % 0.5 % (0.0-0.8); Eosinophils # 0.1 10*3/uL (0.0-0.87); Eosinophils % 1.6 % (0.00-10.9); Hematocrit 38.6 VOL% (35.7-47.0); Hemoglobin 12.7 GM/DL (12.0-16.0); Immature Granulocytes % 0.3 %; Immature Granulocytes Absolute 0.02 #; Lymphocytes # 2.7 10*3/uL (1.4-4.0); Mean Corpuscular HGB Conc 32.9 GM/DL (32-36); Mean Corpuscular Hemoglobin 30 PG (27-34); Mean Platelet Volume 10.9 FL (9.6-12.0); Monocytes # 0.7 10*3/uL (0.11-0.8); Monocytes % 9.7 % (1.7-12.7); Neutrophils # 3.7 10*3/uL (1.4-7.4); Neutrophils % 50.9 % (38.7-73.9); Platelet Count 151 T/CUMM (130-400); Red Blood Count 4.29 MC/CUMM (3.8-5.5); Red Cell Distribution Width 12.5 % (9.3-17.3); White Blood Count 7.3 T/CUMM (4-12)
[2017-10-31 05:45] LABS: Calcium 9.3 MG/DL (8.5-10.1); Osmolality,Calculated 284.1 MOS/KG (273-304); Potassium 4.2 MMOL/L (3.5-5.1); Risk Ratio 4.56; VLDL CHOLESTEROL 46.8 MG/DL
[2017-10-31] MEDS ORDERED: LEVOTHYROXINE 112 MCG TABLET PO SCH (06:30)
[2017-10-31] MEDS ORDERED: KETOROLAC 30 MG/1 ML VIAL IV ONE (08:34)
[2017-10-31] MEDS: FERROUS SULFATE 325 MG TABLET PO SCH (08:51)
[2017-10-31] MEDS: DOCUSATE SODIUM 100 MG CAPSULE PO SCH (08:51)
[2017-10-31] MEDS: GABAPENTIN 400 MG CAPSULE PO SCH (08:51)
[2017-10-31] MEDS ORDERED: CALCIUM (CARBONATE) 600 MG TABLET PO SCH (09:00)
[2017-10-31] MEDS ORDERED: UMECLIDINIUM BROMIDE INH SCH (09:00)
[2017-10-31] MEDS ORDERED: CHOLECALCIFEROL 1,000 UNIT TABLET PO SCH (09:00)
[2017-10-31] MEDS ORDERED: SERTRALINE 100 MG TABLET PO SCH (09:00)
[2017-10-31] MEDS ORDERED: PANTOPRAZOLE 40 MG TABLET PO SCH (09:00)
[2017-10-31] MEDS ORDERED: TURMERIC ROOT EXTRACT 1000 MG PO SCH (09:00)
[2017-10-31] MEDS ORDERED: POTASSIUM CHLORIDE 10 MEQ TABLET PO SCH (09:00)
[2017-10-31] MEDS ORDERED: LEFLUNOMIDE 10 MG TABLET PO SCH (09:00)
[2017-10-31] MEDS ORDERED: ASPIRIN CHEW 81 MG TABLET PO SCH (09:00)
[2017-10-31] MEDS ORDERED: hydroCHLOROthiazide 12.5 MG CAPSULE PO ONE (11:20)
[2017-10-31 13:31] VITALS: BP 120/54
[2017-10-31] MEDS ORDERED: LEVOTHYROXINE 100 MCG TABLET PO SCH (13:45)
[2017-10-31] MEDS ORDERED: PROPRANOLOL 20 MG TABLET PO SCH (14:00)
== END 2017-10-31 13:47 | disposition home or self-care (01) | DRG 305 ==
LOC: N.ED 11:26 → N.EDINP 14:47 → N.CC 15:18 → N.TELES 18:23
PROVIDERS: ADMIT Emergency Medicine; ATTEND Emergency Medicine

== ENCOUNTER 2022-05-29 18:17 | Inpatient (IN) ==
[2022-05-29] MEDS ORDERED: PANTOPRAZOLE 40 MG VIAL IV STA (19:31)
[2022-05-29] MEDS ORDERED: SODIUM CHLORIDE 0.9% 1,000 ML IV STA (19:31)
[2022-05-29] MEDS ORDERED: PROMETHAZINE INJ 25 MG in SODIUM CHLORIDE 0.9% 50 ML IV STA (19:33)
[2022-05-29] MEDS ORDERED: KETOROLAC 30 MG/1 ML VIAL IV STA (19:33)
[2022-05-29 19:41] LABS: Basophils % 0.1 % (0.0-0.8); Hematocrit 33.6 VOL% (35.7-47.0); Hemoglobin 11.1 GM/DL (12.0-16.0); Immature Granulocytes % 0.5 %; Immature Granulocytes Absolute 0.11 #; Lymphocytes % 4.4 % (21.3-54.2); Mean Corpuscular Volume 83.8 FL (87-102); Mean Platelet Volume 10.3 FL (9.6-12.0); Monocytes # 1.8 10*3/uL (0.11-0.8); Monocytes % 7.6 % (1.7-12.7); Neutrophils % 87.4 % (38.7-73.9); Platelet Count 264 T/CUMM (130-400); Red Blood Count 4.01 MC/CUMM (3.8-5.5); Red Cell Distribution Width 13.5 % (9.3-17.3); White Blood Count 23.7 T/CUMM (4-12)
[2022-05-29 19:50] LABS: PT Patient Result 10.9 SECS (10.1-12.1); Partial Thromboplastin Time 25.6 SECS (23.7-32.9)
[2022-05-29 20:00] LABS: Band Neutrophils 10 % (0-10); Hypochromia Slight; Lymphocytes 6 % (20-55); Total Cells Counted 100
[2022-05-29 20:01] LABS: Platelet Estimate Adequate
[2022-05-29 20:14] LABS: Albumin 3.6 G/DL (3.4-5.0); Bilirubin,Total 0.5 MG/DL (0.20-1.00); Calcium 9.8 MG/DL (8.5-10.1); Osmolality,Calculated 275.4 MOS/KG (273-304); Total Protein 7.4 G/DL (6.4-8.2)
[2022-05-29] MEDS ORDERED: ONDANSETRON 4 MG/2 ML VIAL IV PRN (21:13)
[2022-05-29] MEDS ORDERED: ACETAMINOPHEN 325 MG TABLET PO PRN (21:13)
[2022-05-29] MEDS ORDERED: SODIUM CHLORIDE 0.9% 1,000 ML IV PRN (21:17)
[2022-05-29] MEDS ORDERED: MAGNESIUM SULF RIDER 2 GM/50 ML PREMIX IV ONE (21:18)
[2022-05-29] MEDS: metroNIDAZOLE INJ 500 MG/100 ML PREMIX IV SCH (22:30)
[2022-05-29] MEDS ORDERED: LEVOFLOXACIN INJ 500 MG/100 ML PREMIX IV SCH (22:30)
[2022-05-29] MEDS: SODIUM CHLORIDE 0.9% 1,000 ML IV SCH (22:46)
[2022-05-30] MEDS: PROMETHAZINE 25 MG/1 ML VIAL IM PRN ×4 (00:04→18:28)
[2022-05-30] MEDS: cefTRIAXone 1,000 MG in SODIUM CHLORIDE 0.9% 100 ML IV SCH ×2 (01:12→22:33)
[2022-05-30] MEDS: HYDROmorphone 1 MG/1 ML SYRINGE IV PRN ×5 (01:13→22:40)
[2022-05-30] MEDS: metroNIDAZOLE INJ 500 MG/100 ML PREMIX IV SCH ×3 (06:11→23:11)
[2022-05-30] MEDS: LEVOTHYROXINE 112 MCG TABLET PO SCH (06:15)
[2022-05-30 07:14] LABS: Basophils % 0.1 % (0.0-0.8); Hematocrit 29.8 VOL% (35.7-47.0); Hemoglobin 9.6 GM/DL (12.0-16.0); Immature Granulocytes % 0.2 %; Immature Granulocytes Absolute 0.04 #; Lymphocytes # 0.9 10*3/uL (1.4-4.0); Lymphocytes % 5.1 % (21.3-54.2); Mean Corpuscular HGB Conc 32.2 GM/DL (32-36); Mean Corpuscular Volume 84.4 FL (87-102); Mean Platelet Volume 10.5 FL (9.6-12.0); Monocytes # 1.7 10*3/uL (0.11-0.8); Monocytes % 9.3 % (1.7-12.7); Neutrophils % 85.3 % (38.7-73.9); Platelet Count 215 T/CUMM (130-400); Red Blood Count 3.53 MC/CUMM (3.8-5.5); White Blood Count 17.9 T/CUMM (4-12)
[2022-05-30 07:35] LABS: Band Neutrophils 5 % (0-10); Hypochromia Slight; Lymphocytes 1 % (20-55); Microcytosis Slight; Platelet Estimate Adequate; Total Cells Counted 100
[2022-05-30 07:52] LABS: Alanine Aminotransferase 46 U/L (13-56); Albumin 2.5 G/DL (3.4-5.0); Alkaline Phosphatase 59 U/L (45-117); Aspartate Amino Transferase 63 U/L (0-37); Bilirubin,Total < 0.39 MG/DL (0.20-1.00); Blood Urea Nitrogen 28 MG/DL (7-18); Calcium 8.7 MG/DL (8.5-10.1); Carbon Dioxide 19 MMOL/L (21-32); Chloride 108 MMOL/L (98-107); Glucose 112 MG/DL (74-106); Osmolality,Calculated 281.7 MOS/KG (273-304); Sodium 138 MMOL/L (136-145); Total Protein 5.9 G/DL (6.4-8.2)
[2022-05-30] MEDS ORDERED: CLOPIDOGREL 75 MG TABLET PO SCH (09:00)
[2022-05-30] MEDS ORDERED: LISINOPRIL/HCTZ 20-12.5 MG TABLET PO SCH (09:00)
[2022-05-30] MEDS: GABAPENTIN 400 MG CAPSULE PO SCH ×3 (09:11→20:26)
[2022-05-30] MEDS: SERTRALINE 100 MG TABLET PO SCH (09:11)
[2022-05-30] MEDS: CHOLECALCIFEROL 1,000 UNIT TABLET PO SCH (09:12)
[2022-05-30] MEDS: HYDROXYCHLOROQUINE 200 MG TABLET PO SCH ×2 (09:12→20:26)
[2022-05-30] MEDS: NON-FORMULARY MEDICATION (Umeclidinium [Incruse Ellipta] 62.5 mcg/actuation blister with d INH SCH (09:12)
[2022-05-30] MEDS: CALCIUM (CARBONATE) 500 MG TABLET PO SCH (09:12)
[2022-05-30] MEDS: SODIUM CHLORIDE 0.9% 1,000 ML IV SCH ×2 (09:22→16:35)
[2022-05-30 09:25] LABS: Hematocrit 29.9 VOL% (35.7-47.0); Hemoglobin 9.7 GM/DL (12.0-16.0)
[2022-05-30] MEDS: LACTATED RINGERS 1,000 ML IV SCH ×3 (12:22→22:43)
[2022-05-30 15:31] LABS: Hematocrit 31.6 VOL% (35.7-47.0); Hemoglobin 10.2 GM/DL (12.0-16.0)
[2022-05-30] MEDS: ATORVASTATIN 80 MG TABLET PO SCH (20:26)
[2022-05-30] MEDS: LATANOPROST 0.005% OPH SOLN 2.5 ML BOTTLE BOTH EYES SCH (20:26)
[2022-05-30 21:38] LABS: Hematocrit 27.1 VOL% (35.7-47.0); Hemoglobin 8.7 GM/DL (12.0-16.0)
[2022-05-31] MEDS: PROMETHAZINE 25 MG/1 ML VIAL IM PRN ×5 (00:41→22:18)
[2022-05-31] MEDS: SODIUM CHLORIDE 0.9% 1,000 ML IV SCH ×2 (04:32→13:32)
[2022-05-31 05:26] LABS: Basophils # 0.1 10*3/uL (0.0-0.2); Basophils % 0.3 % (0.0-0.8); Hematocrit 28.6 VOL% (35.7-47.0); Hemoglobin 8.9 GM/DL (12.0-16.0); Immature Granulocytes % 0.7 %; Immature Granulocytes Absolute 0.15 #; Lymphocytes # 1.4 10*3/uL (1.4-4.0); Lymphocytes % 6.8 % (21.3-54.2); Mean Corpuscular HGB Conc 31.1 GM/DL (32-36); Mean Corpuscular Volume 88.3 FL (87-102); Mean Platelet Volume 10.2 FL (9.6-12.0); Monocytes # 2.3 10*3/uL (0.11-0.8); Monocytes % 10.9 % (1.7-12.7); Neutrophils % 81.3 % (38.7-73.9); Platelet Count 207 T/CUMM (130-400); Red Blood Count 3.24 MC/CUMM (3.8-5.5); White Blood Count 20.7 T/CUMM (4-12)
[2022-05-31 05:49] LABS: Alanine Aminotransferase 29 U/L (13-56); Alkaline Phosphatase 59 U/L (45-117); Aspartate Amino Transferase 31 U/L (0-37); Bilirubin,Total < 0.39 MG/DL (0.20-1.00); Blood Urea Nitrogen 28 MG/DL (7-18); Calcium 8.4 MG/DL (8.5-10.1); Carbon Dioxide 23 MMOL/L (21-32); Chloride 107 MMOL/L (98-107); Glucose 114 MG/DL (74-106); Osmolality,Calculated 281.7 MOS/KG (273-304); Potassium 3.6 MMOL/L (3.5-5.1); Sodium 138 MMOL/L (136-145); Total Protein 5.2 G/DL (6.4-8.2)
[2022-05-31 05:56] LABS: Band Neutrophils 2 % (0-10); Hypochromia Slight; Lymphocytes 5 % (20-55); Microcytosis Slight; Platelet Estimate Adequate; Total Cells Counted 100
[2022-05-31] MEDS: metroNIDAZOLE INJ 500 MG/100 ML PREMIX IV SCH ×3 (06:08→21:42)
[2022-05-31] MEDS: LEVOTHYROXINE 112 MCG TABLET PO SCH (06:10)
[2022-05-31] MEDS: LACTATED RINGERS 1,000 ML IV SCH ×2 (07:38→16:55)
[2022-05-31] MEDS: HYDROXYCHLOROQUINE 200 MG TABLET PO SCH ×2 (08:28→21:38)
[2022-05-31] MEDS: CALCIUM (CARBONATE) 500 MG TABLET PO SCH (08:28)
[2022-05-31] MEDS: GABAPENTIN 400 MG CAPSULE PO SCH ×3 (08:28→21:38)
[2022-05-31] MEDS: NON-FORMULARY MEDICATION (Umeclidinium [Incruse Ellipta] 62.5 mcg/actuation blister with d INH SCH (08:29)
[2022-05-31] MEDS: CHOLECALCIFEROL 1,000 UNIT TABLET PO SCH (08:29)
[2022-05-31] MEDS: SERTRALINE 100 MG TABLET PO SCH (08:29)
[2022-05-31] MEDS: HYDROmorphone 1 MG/1 ML SYRINGE IV PRN (20:06)
[2022-05-31] MEDS: lisinopriL 10 MG TABLET PO SCH (20:12)
[2022-05-31] MEDS: LATANOPROST 0.005% OPH SOLN 2.5 ML BOTTLE BOTH EYES SCH (21:37)
[2022-05-31] MEDS: ATORVASTATIN 80 MG TABLET PO SCH (21:38)
[2022-05-31] MEDS: cefTRIAXone 1,000 MG in SODIUM CHLORIDE 0.9% 100 ML IV SCH (21:39)
[2022-06-01] MEDS ORDERED: ALUMINUM/MAGNES/SIMETH MAX STR 30 ML UDCUP PO PRN (02:41)
[2022-06-01] MEDS: SODIUM CHLORIDE 0.9% 1,000 ML IV SCH ×2 (02:45→11:06)
[2022-06-01] MEDS: LACTATED RINGERS 1,000 ML IV SCH ×2 (02:50→16:25)
[2022-06-01] MEDS: PROMETHAZINE 25 MG/1 ML VIAL IM PRN ×4 (04:07→21:18)
[2022-06-01] MEDS: metroNIDAZOLE INJ 500 MG/100 ML PREMIX IV SCH ×3 (06:08→22:18)
[2022-06-01] MEDS: LEVOTHYROXINE 112 MCG TABLET PO SCH (06:08)
[2022-06-01 06:25] LABS: Basophils # 0.1 10*3/uL (0.0-0.2); Basophils % 0.2 % (0.0-0.8); Hematocrit 22.8 VOL% (35.7-47.0); Hemoglobin 7.3 GM/DL (12.0-16.0); Immature Granulocytes % 1.2 %; Immature Granulocytes Absolute 0.31 #; Lymphocytes # 1.6 10*3/uL (1.4-4.0); Mean Corpuscular Volume 86.4 FL (87-102); Monocytes # 2.5 10*3/uL (0.11-0.8); Monocytes % 9.3 % (1.7-12.7); Neutrophils % 83.3 % (38.7-73.9); Platelet Count 255 T/CUMM (130-400); Red Blood Count 2.64 MC/CUMM (3.8-5.5); Red Cell Distribution Width 14.1 % (9.3-17.3); White Blood Count 26.5 T/CUMM (4-12)
[2022-06-01 06:52] LABS: Calcium 9.1 MG/DL (8.5-10.1); Osmolality,Calculated 285.3 MOS/KG (273-304); Potassium 3.3 MMOL/L (3.5-5.1)
[2022-06-01 06:59] LABS: Band Neutrophils 9 % (0-10); Lymphocytes 3 % (20-55); Microcytosis Slight; Myelocytes 1 %; Ovalocytes Slight; Total Cells Counted 100
[2022-06-01 07:00] LABS: Platelet Estimate Normal
[2022-06-01] MEDS: CALCIUM (CARBONATE) 500 MG TABLET PO SCH (08:58)
[2022-06-01] MEDS: CHOLECALCIFEROL 1,000 UNIT TABLET PO SCH (08:58)
[2022-06-01] MEDS: HYDROXYCHLOROQUINE 200 MG TABLET PO SCH ×2 (08:58→21:16)
[2022-06-01] MEDS: lisinopriL 10 MG TABLET PO SCH ×2 (08:58→21:16)
[2022-06-01] MEDS: GABAPENTIN 400 MG CAPSULE PO SCH ×3 (08:58→21:16)
[2022-06-01] MEDS: SERTRALINE 100 MG TABLET PO SCH (08:58)
[2022-06-01 10:48] LABS: Hematocrit 22.2 VOL% (35.7-47.0); Hemoglobin 7.2 GM/DL (12.0-16.0)
[2022-06-01] MEDS: PANTOPRAZOLE 40 MG VIAL IV SCH (10:52)
[2022-06-01] MEDS: NON-FORMULARY MEDICATION (Umeclidinium [Incruse Ellipta] 62.5 mcg/actuation blister with d INH SCH (11:06)
[2022-06-01 17:01] LABS: Hematocrit 19.9 VOL% (35.7-47.0)
[2022-06-01 17:03] LABS: Hemoglobin 6.4 GM/DL (12.0-16.0)
[2022-06-01] MEDS: ATORVASTATIN 80 MG TABLET PO SCH (21:16)
[2022-06-01] MEDS: LATANOPROST 0.005% OPH SOLN 2.5 ML BOTTLE BOTH EYES SCH (21:17)
[2022-06-01] MEDS: cefTRIAXone 1,000 MG in SODIUM CHLORIDE 0.9% 100 ML IV SCH (22:19)
[2022-06-01 22:55] LABS: Hematocrit 19.1 VOL% (35.7-47.0)
[2022-06-01 23:00] LABS: Hemoglobin 6.1 GM/DL (12.0-16.0)
[2022-06-02] MEDS: PROMETHAZINE 25 MG/1 ML VIAL IM PRN ×3 (03:53→20:50)
[2022-06-02 06:28] LABS: Basophils # 0.1 10*3/uL (0.0-0.2); Basophils % 0.2 % (0.0-0.8); Eosinophils # 0.1 10*3/uL (0.0-0.87); Eosinophils % 0.2 % (0.00-10.9); Hematocrit 28.3 VOL% (35.7-47.0); Immature Granulocytes % 3.9 %; Immature Granulocytes Absolute 0.85 #; Lymphocytes # 2.2 10*3/uL (1.4-4.0); Lymphocytes % 9.7 % (21.3-54.2); Mean Corpuscular HGB Conc 31.8 GM/DL (32-36); Mean Platelet Volume 9.3 FL (9.6-12.0); Monocytes % 8.8 % (1.7-12.7); Neutrophils % 77.2 % (38.7-73.9); Platelet Count 214 T/CUMM (130-400); Red Cell Distribution Width 15.2 % (9.3-17.3); White Blood Count 22.1 T/CUMM (4-12)
[2022-06-02 06:49] LABS: Red Blood Count 3.37 MC/CUMM (3.8-5.5)
[2022-06-02] MEDS: metroNIDAZOLE INJ 500 MG/100 ML PREMIX IV SCH ×3 (06:56→22:19)
[2022-06-02 07:02] LABS: Calcium 8.1 MG/DL (8.5-10.1); Hypochromia Slight; Lymphocytes 9 % (20-55); Microcytosis Slight; Osmolality,Calculated 285.3 MOS/KG (273-304); Platelet Estimate Adequate; Potassium 3.1 MMOL/L (3.5-5.1); Total Cells Counted 100
[2022-06-02] MEDS: LEVOTHYROXINE 112 MCG TABLET PO SCH (07:03)
[2022-06-02] MEDS: GABAPENTIN 400 MG CAPSULE PO SCH ×3 (08:18→20:51)
[2022-06-02] MEDS: PANTOPRAZOLE 40 MG VIAL IV SCH (08:18)
[2022-06-02] MEDS: HYDROXYCHLOROQUINE 200 MG TABLET PO SCH ×2 (08:19→20:51)
[2022-06-02] MEDS: CALCIUM (CARBONATE) 500 MG TABLET PO SCH (08:19)
[2022-06-02] MEDS: lisinopriL 10 MG TABLET PO SCH ×2 (08:19→20:51)
[2022-06-02] MEDS: SERTRALINE 100 MG TABLET PO SCH (08:19)
[2022-06-02] MEDS: CHOLECALCIFEROL 1,000 UNIT TABLET PO SCH (08:19)
[2022-06-02] MEDS: NON-FORMULARY MEDICATION (Umeclidinium [Incruse Ellipta] 62.5 mcg/actuation blister with d INH SCH (08:24)
[2022-06-02] MEDS: LACTATED RINGERS 1,000 ML IV SCH ×3 (13:31→19:00)
[2022-06-02] MEDS: HYDROmorphone 1 MG/1 ML SYRINGE IV PRN ×2 (14:28→20:49)
[2022-06-02] MEDS: ATORVASTATIN 80 MG TABLET PO SCH (20:51)
[2022-06-02] MEDS: POTASSIUM CHLORIDE 20 MEQ TABLET PO PRN (20:58)
[2022-06-02] MEDS: cefTRIAXone 1,000 MG in SODIUM CHLORIDE 0.9% 100 ML IV SCH (21:39)
[2022-06-02] MEDS: LATANOPROST 0.005% OPH SOLN 2.5 ML BOTTLE BOTH EYES SCH (21:41)
[2022-06-03] MEDS ORDERED: hydrALAZINE 20 MG/1 ML VIAL IV PRN (00:16)
[2022-06-03] MEDS: POTASSIUM CHLORIDE 20 MEQ TABLET PO PRN (00:29)
[2022-06-03] MEDS: HYDROmorphone 1 MG/1 ML SYRINGE IV PRN ×5 (00:57→22:07)
[2022-06-03] MEDS: PROMETHAZINE 25 MG/1 ML VIAL IM PRN ×2 (03:09→18:46)
[2022-06-03] MEDS: ONDANSETRON 4 MG/2 ML VIAL IV PRN ×4 (03:09→22:09)
[2022-06-03 04:51] LABS: Basophils # 0.1 10*3/uL (0.0-0.2); Basophils % 0.5 % (0.0-0.8); Eosinophils # 0.1 10*3/uL (0.0-0.87); Eosinophils % 0.6 % (0.00-10.9); Hemoglobin 9.3 GM/DL (12.0-16.0); Immature Granulocytes % 5.9 %; Immature Granulocytes Absolute 0.88 #; Lymphocytes # 2.2 10*3/uL (1.4-4.0); Mean Corpuscular Volume 85.7 FL (87-102); Monocytes # 1.3 10*3/uL (0.11-0.8); Platelet Count 231 T/CUMM (130-400); Red Cell Distribution Width 15.8 % (9.3-17.3)
[2022-06-03] MEDS: LACTATED RINGERS 1,000 ML IV SCH ×2 (05:01→15:44)
[2022-06-03 05:03] LABS: INR 1.1; Partial Thromboplastin Time 25.9 SECS (23.7-32.9)
[2022-06-03 05:13] LABS: Calcium 8.2 MG/DL (8.5-10.1); Osmolality,Calculated 281.3 MOS/KG (273-304); Potassium 3.3 MMOL/L (3.5-5.1)
[2022-06-03 05:15] LABS: Lymphocytes 18 % (20-55); Platelet Estimate Adequate; Total Cells Counted 100
[2022-06-03 05:16] LABS: Hypochromia Slight; Microcytosis Slight
[2022-06-03] MEDS: LEVOTHYROXINE 112 MCG TABLET PO SCH (05:17)
[2022-06-03] MEDS: metroNIDAZOLE INJ 500 MG/100 ML PREMIX IV SCH ×3 (05:33→21:30)
[2022-06-03] MEDS ORDERED: MAGNESIUM SULF RIDER 2 GM/50 ML PREMIX IV PRN (05:41)
[2022-06-03] MEDS ORDERED: MAGNESIUM SULF RIDER 4 GM/100 ML PREMIX IV PRN (05:41)
[2022-06-03] MEDS: HYDROXYCHLOROQUINE 200 MG TABLET PO SCH ×2 (08:59→21:20)
[2022-06-03] MEDS: CALCIUM (CARBONATE) 500 MG TABLET PO SCH (08:59)
[2022-06-03] MEDS: GABAPENTIN 400 MG CAPSULE PO SCH ×3 (08:59→21:20)
[2022-06-03] MEDS: lisinopriL 10 MG TABLET PO SCH ×2 (08:59→21:20)
[2022-06-03] MEDS: amLODIPine 10 MG TABLET PO SCH (08:59)
[2022-06-03] MEDS: PANTOPRAZOLE 40 MG VIAL IV SCH (09:00)
[2022-06-03] MEDS: NON-FORMULARY MEDICATION (Umeclidinium [Incruse Ellipta] 62.5 mcg/actuation blister with d INH SCH (09:00)
[2022-06-03] MEDS: CHOLECALCIFEROL 1,000 UNIT TABLET PO SCH (09:00)
[2022-06-03] MEDS: SERTRALINE 100 MG TABLET PO SCH (09:00)
[2022-06-03] MEDS: POTASSIUM CHLORIDE RIDER 10 MEQ/100 ML PREMIX IV PRN ×4 (11:46→22:09)
[2022-06-03] MEDS: ATORVASTATIN 80 MG TABLET PO SCH (21:20)
[2022-06-03] MEDS: LATANOPROST 0.005% OPH SOLN 2.5 ML BOTTLE BOTH EYES SCH (21:20)
[2022-06-03] MEDS: cefTRIAXone 1,000 MG in SODIUM CHLORIDE 0.9% 100 ML IV SCH (22:09)
[2022-06-04] MEDS: HYDROmorphone 1 MG/1 ML SYRINGE IV PRN ×2 (03:14→08:32)
[2022-06-04] MEDS: ONDANSETRON 4 MG/2 ML VIAL IV PRN (03:15)
[2022-06-04] MEDS: LACTATED RINGERS 1,000 ML IV SCH (05:18)
[2022-06-04] MEDS: LEVOTHYROXINE 112 MCG TABLET PO SCH (05:19)
[2022-06-04] MEDS: metroNIDAZOLE INJ 500 MG/100 ML PREMIX IV SCH (05:30)
[2022-06-04 06:19] LABS: Basophils % 0.3 % (0.0-0.8); Eosinophils # 0.2 10*3/uL (0.0-0.87); Eosinophils % 1.4 % (0.00-10.9); Hematocrit 28.8 VOL% (35.7-47.0); Immature Granulocytes % 5.9 %; Lymphocytes # 2.8 10*3/uL (1.4-4.0); Lymphocytes % 18.6 % (21.3-54.2); Mean Corpuscular HGB Conc 31.3 GM/DL (32-36); Mean Platelet Volume 9.1 FL (9.6-12.0); Monocytes # 1.1 10*3/uL (0.11-0.8); Monocytes % 7.3 % (1.7-12.7); Neutrophils % 66.5 % (38.7-73.9); Platelet Count 254 T/CUMM (130-400); Red Blood Count 3.35 MC/CUMM (3.8-5.5); Red Cell Distribution Width 15.6 % (9.3-17.3); White Blood Count 15.3 T/CUMM (4-12)
[2022-06-04 06:40] LABS: Eosinophils 4 % (0-10); Hypochromia Slight; Lymphocytes 10 % (20-55); Platelet Estimate Normal; Total Cells Counted 100
[2022-06-04 06:50] LABS: Calcium 8.1 MG/DL (8.5-10.1); Osmolality,Calculated 281.1 MOS/KG (273-304); Potassium 3.5 MMOL/L (3.5-5.1)
[2022-06-04] MEDS: HYDROXYCHLOROQUINE 200 MG TABLET PO SCH (08:27)
[2022-06-04] MEDS: lisinopriL 10 MG TABLET PO SCH (08:27)
[2022-06-04] MEDS: CHOLECALCIFEROL 1,000 UNIT TABLET PO SCH (08:27)
[2022-06-04] MEDS: GABAPENTIN 400 MG CAPSULE PO SCH (08:27)
[2022-06-04] MEDS: SERTRALINE 100 MG TABLET PO SCH (08:27)
[2022-06-04] MEDS: CALCIUM (CARBONATE) 500 MG TABLET PO SCH (08:27)
[2022-06-04] MEDS: amLODIPine 10 MG TABLET PO SCH (08:27)
[2022-06-04] MEDS: PANTOPRAZOLE 40 MG VIAL IV SCH (08:28)
[2022-06-04 08:30] VITALS: BP 142/57
[2022-06-04] MEDS: PROMETHAZINE 25 MG/1 ML VIAL IM PRN (08:32)
[2022-06-04] MEDS: NON-FORMULARY MEDICATION (Umeclidinium [Incruse Ellipta] 62.5 mcg/actuation blister with d INH SCH (09:19)
== END 2022-06-04 12:16 | disposition home or self-care (01) | DRG 813 ==
LOC: N.ED 18:17 → N.2W 18:17 → SUATTDRO 06-01 12:19
PROVIDERS: ADMIT Internal Medicine; ATTEND Family Medicine